=== PATIENT | male | born 1970 | race Caucasian/White ===

== ENCOUNTER 2017-03-27 13:21 | Emergency (ER) | payer MEDICAID ==
[~2017-03-27] VITALS: Ht 177.8 cm; Wt 143.8 kg
[2017-03-27 13:26] VITALS: BP 146/89; Ht 177.8 cm; Wt 143.8 kg
== END 2017-03-27 14:20 | disposition home or self-care (01) ==
LOC: ED 13:21
DX: L03.113 Cellulitis of right upper limb (principal); I10 Essential (primary) hypertension; E78.5 Hyperlipidemia, unspecified

== ENCOUNTER 2017-03-31 20:41 | Emergency (ER) | payer MEDICAID ==
[2017-03-31 21:34] VITALS: BP 140/72
== END 2017-03-31 21:34 | disposition home or self-care (01) ==
LOC: ED 20:41
DX: L03.113 Cellulitis of right upper limb (principal); I10 Essential (primary) hypertension

== ENCOUNTER 2017-07-01 19:45 | Emergency (ER) | payer OTHER ==
[~2017-07-01] VITALS: Ht 177.8 cm; Wt 148.9 kg
[2017-07-01 19:53] VITALS: Ht 177.8 cm; Wt 148.9 kg
[2017-07-01 22:44] VITALS: BP 131/80
== END 2017-07-01 22:44 | disposition home or self-care (01) ==
LOC: ED 19:45
DX: J06.9 Acute upper respiratory infection, unspecified (principal); I10 Essential (primary) hypertension; E78.5 Hyperlipidemia, unspecified
CPT/HCPCS: J7512

== ENCOUNTER 2017-08-19 21:30 | Emergency (ER) | payer OTHER ==
[~2017-08-19] VITALS: Ht 177.8 cm; Wt 108.4 kg
[2017-08-19 21:47] VITALS: Ht 177.8 cm; Wt 108.4 kg
[2017-08-20 00:05] VITALS: BP 152/93
== END 2017-08-20 00:05 | disposition home or self-care (01) ==
LOC: ED 21:30
DX: J06.9 Acute upper respiratory infection, unspecified (principal); I10 Essential (primary) hypertension; E11.9 Type 2 diabetes mellitus without complications; E78.5 Hyperlipidemia, unspecified

== ENCOUNTER 2017-09-01 19:39 | Emergency (ER) | payer OTHER ==
[~2017-09-01] VITALS: Ht 177.8 cm; Wt 147.4 kg
[2017-09-01 19:48] VITALS: Ht 177.8 cm; Wt 147.4 kg
[2017-09-01 20:58] VITALS: BP 121/61
== END 2017-09-01 21:36 | disposition home or self-care (01) ==
LOC: ED 19:39
DX: N39.0 Urinary tract infection, site not specified (principal); I10 Essential (primary) hypertension; E11.9 Type 2 diabetes mellitus without complications; E78.00 Pure hypercholesterolemia, unspecified
CPT/HCPCS: J0696; J2001

== ENCOUNTER 2018-05-10 20:46 | Emergency (ER) | payer OTHER ==
[~2018-05-10] VITALS: Ht 177.8 cm; Wt 132.4 kg
[2018-05-10 20:54] VITALS: Ht 177.8 cm; Wt 132.4 kg
[2018-05-11 00:32] VITALS: BP 115/80
== END 2018-05-11 00:32 | disposition home or self-care (01) ==
LOC: ED 20:46
DX: J06.9 Acute upper respiratory infection, unspecified (principal); B34.9 Viral infection, unspecified; I10 Essential (primary) hypertension; E11.9 Type 2 diabetes mellitus without complications; E78.5 Hyperlipidemia, unspecified
CPT/HCPCS: 87804

== ENCOUNTER 2018-05-14 19:36 | Emergency (ER) | payer OTHER ==
[~2018-05-14] VITALS: Ht 177.8 cm; Wt 129.7 kg
[2018-05-14 20:07] VITALS: Ht 177.8 cm; Wt 129.7 kg
[2018-05-14 21:45] VITALS: BP 120/74
== END 2018-05-14 21:45 | disposition home or self-care (01) ==
LOC: ED 19:36
DX: J10.1 Influenza due to other identified influenza virus with other respiratory manifestations (principal); I10 Essential (primary) hypertension; E66.9 Obesity, unspecified
CPT/HCPCS: 87804; Q0162